=== PATIENT | male | born 1965 | race American Indian/Alaskan Native ===

== ENCOUNTER 2019-08-01 10:08 | Emergency (ER) | payer SELFPAY ==
--- NOTE | 2019-08-01 11:05 | Emergency Department Report ---
ED General Adult HPI - General Chief complaint: Dyspnea/Respdistress Stated complaint: DENILSON Time Seen by Provider: 08/01/19 10:35 Source: patient Mode of arrival: Stretcher Limitations: No Limitations - History of Present Illness Initial comments: Patient presents to the emergency department the chief complaint of increased shortness of breath since Friday. Patient states he was diagnosed with pneumonia on Friday at the [facility] and given a 5-day course of antibiotics. Patient states since that time he has had increased shortness of breath and more coughing. The patient also complains of orthopnea. Patient states he is prescribed Lasix as needed but has not had it since Friday. Patient denies any ayan chest pain. -: Gradual Severity scale (0 -10): 0 Consistency: constant Improves with: none Worsens with: other (Lying flat) Associated Symptoms: denies other symptoms Treatments Prior to Arrival: none - Related Data Home Medications Medication Instructions Recorded Confirmed Last Taken Aspirin 325 mg PO QDAY 07/30/13 07/30/13 Unknown buPROPion SR [Wellbutrin SR] 150 mg PO BID 07/30/13 07/30/13 Unknown metFORMIN [Glucophage] 1,000 mg PO BID 07/30/13 07/30/13 Unknown Previous Rx's Medication Instructions Recorded Last Taken Type Antacid [Alum-Mag Hydrox-Simeth 60 ml PO Q6H PRN 30 Days oral.liqd 08/07/13 Unknown Rx [id number]] Pantoprazole [Protonix TAB] 40 mg PO QDAY #30 tablet 08/07/13 Unknown Rx QUEtiapine [SEROquel] 50 mg PO QHS #30 tablet 08/07/13 Unknown Rx Simethicone [Gas Relief] 125 mg PO TID #90 capsule 08/07/13 Unknown Rx lisinopriL [Zestril TAB] 20 mg PO QDAY #30 tablet 08/07/13 Unknown Rx Ondansetron [Zofran Odt] 4 mg PO Q6H #20 tab.rapdis 02/22/14 Unknown Rx Oxycodone HCl/Acetaminophen 1 each PO Q6HR PRN #20 tablet 02/22/14 Unknown Rx [Percocet 10-325 mg] Albuterol INH(or & Nicu Only) 2 puff IH Q4HR PRN #1 inhalation 08/01/19 Unknown Rx [ProAir HFA Inhaler] Albuterol Sulfate [Albuterol 0.63% 0.63 mg IH Q4HR PRN #30 ml 08/01/19 Unknown Rx NEBS] guaiFENesin/CODEINE [Robitussin AC] 5 ml PO Q12HR PRN #180 oral.liqd 08/01/19 Unknown Rx levoFLOXacin [Levaquin] 750 mg PO QDAY #7 tablet 08/01/19 Unknown Rx predniSONE [Deltasone] 20 mg PO DAILY #15 tablet 08/01/19 Unknown Rx Allergies Allergy/AdvReac Type Severity Reaction Status Date / Time No Known Allergies Allergy Unverified 07/30/13 10:53 ED Review of Systems ROS: Stated complaint: DENILSON Other details as noted in HPI Constitutional: denies: chills, fever Eyes: denies: eye pain, eye discharge, vision change ENT: denies: ear pain, throat pain Respiratory: shortness of breath. denies: cough, wheezing Cardiovascular: denies: chest pain, palpitations Endocrine: no symptoms reported Gastrointestinal: denies: abdominal pain, nausea, diarrhea Genitourinary: denies: urgency, dysuria Musculoskeletal: denies: back pain, joint swelling, arthralgia Skin: denies: rash, lesions Neurological: denies: headache, weakness, paresthesias Psychiatric: denies: anxiety, depression Hematological/Lymphatic: denies: easy bleeding, easy bruising ED Past Medical Hx - Past Medical History Previous Medical History?: Yes Hx Hypertension: Yes Hx Congestive Heart Failure: No Hx Diabetes: Yes Hx Arthritis: Yes Hx Kidney Stones: Yes Hx Psychiatric Treatment: Yes (depression) Hx Asthma: No Hx COPD: No Additional medical history: Gallstones - Surgical History Past Surgical History?: Yes Additional Surgical History: tonsillectomy - Social History Smoking Status: Never Smoker Substance Use Type: None - Medications Home Medications: Home Medications Medication Instructions Recorded Confirmed Last Taken Type Aspirin 325 mg PO QDAY 07/30/13 07/30/13 Unknown History buPROPion SR [Wellbutrin SR] 150 mg PO BID 07/30/13 07/30/13 Unknown History metFORMIN [Glucophage] 1,000 mg PO BID 07/30/13 07/30/13 Unknown History Antacid [Alum-Mag Hydrox-Simeth 60 ml PO Q6H PRN 30 Days oral.liqd 08/07/13 Unknown Rx [id number]/[id number]] Pantoprazole [Protonix TAB] 40 mg PO QDAY #30 tablet 08/07/13 Unknown Rx QUEtiapine [SEROquel] 50 mg PO QHS #30 tablet 08/07/13 Unknown Rx Simethicone [Gas Relief] 125 mg PO TID #90 capsule 08/07/13 Unknown Rx lisinopriL [Zestril TAB] 20 mg PO QDAY #30 tablet 08/07/13 Unknown Rx Ondansetron [Zofran Odt] 4 mg PO Q6H #20 tab.rapdis 02/22/14 Unknown Rx Oxycodone HCl/Acetaminophen 1 each PO Q6HR PRN #20 tablet 02/22/14 Unknown Rx [Percocet 10-325 mg] Albuterol INH(or & Nicu Only) 2 puff IH Q4HR PRN #1 inhalation 08/01/19 Unknown Rx [ProAir HFA Inhaler] Albuterol Sulfate [Albuterol 0.63% 0.63 mg IH Q4HR PRN #30 ml 08/01/19 Unknown Rx NEBS] guaiFENesin/CODEINE [Robitussin AC] 5 ml PO Q12HR PRN #180 oral.liqd 08/01/19 Unknown Rx levoFLOXacin [Levaquin] 750 mg PO QDAY #7 tablet 08/01/19 Unknown Rx predniSONE [Deltasone] 20 mg PO DAILY #15 tablet 08/01/19 Unknown Rx ED Physical Exam - General Limitations: No Limitations General appearance: alert, in no apparent distress - Head Head exam: Present: atraumatic, normocephalic - Eye Eye exam: Present: normal appearance, PERRL, EOMI - ENT ENT exam: Present: mucous membranes moist - Neck Neck exam: Present: normal inspection - Respiratory Respiratory exam: Present: decreased breath sounds. Absent: respiratory distress - Cardiovascular Cardiovascular Exam: Present: regular rate, normal rhythm. Absent: systolic murmur, diastolic murmur, rubs, gallop - GI/Abdominal GI/Abdominal exam: Present: soft, normal bowel sounds. Absent: distended, tenderness - Rectal Rectal exam: Present: deferred - Extremities Exam Extremities exam: Present: normal inspection - Back Exam Back exam: Present: normal inspection - Neurological Exam Neurological exam: Present: alert, oriented X3, CN II-XII intact. Absent: motor sensory deficit - Psychiatric Psychiatric exam: Present: normal affect, normal mood - Skin Skin exam: Present: warm, dry, intact, normal color. Absent: rash ED Course Vital Signs 08/01/19 08/01/19 08/01/19 10:23 10:58 13:00 Temperature 98 F 98.7 F 98.4 F Pulse Rate 98 H 92 H 88 Respiratory 16 24 Rate Blood Pressure 133/75 Blood Pressure 132/82 144/84 [Left] O2 Sat by Pulse 100 99 Oximetry ED Medical Decision Making - Lab Data Result diagrams: 08/01/19 11:07 08/01/19 11:07 Lab Results 08/01/19 08/01/19 08/01/19 Range/Units 11:07 11:07 13:09 WBC 5.4 (4.5-11.0) K/mm3 RBC 3.68 (3.65-5.03) M/mm3 Hgb 9.8 L (11.8-15.2) gm/dl Hct 30.1 L (35.5-45.6) % MCV 82 L (84-94) fl MCH 27 L (28-32) pg MCHC 33 (32-34) % RDW 15.4 H (13.2-15.2) % Plt Count 218 (140-440) K/mm3 Lymph % (Auto) 10.2 L (13.4-35.0) % [place] % (Auto) 12.0 H (0.0-7.3) % Eos % (Auto) 1.4 (0.0-4.3) % Baso % (Auto) 1.1 (0.0-1.8) % Lymph # 0.6 L (1.2-5.4) K/mm3 [place] # 0.6 (0.0-0.8) K/mm3 Eos # 0.1 (0.0-0.4) K/mm3 Baso # 0.1 (0.0-0.1) K/mm3 Seg Neutrophils % 75.3 H (40.0-70.0) % Seg Neutrophils # 4.0 (1.8-7.7) K/mm3 Sodium 138 (137-145) mmol/L Potassium 3.8 (3.6-5.0) mmol/L Chloride 105.2 (98-107) mmol/L Carbon Dioxide 19 L (22-30) mmol/L Anion Gap 18 mmol/L BUN 10 (9-20) mg/dL Creatinine 0.7 L (0.8-1.5) mg/dL Estimated GFR > 60 ml/min BUN/Creatinine Ratio 14 % Glucose 161 H (75-100) mg/dL Calcium 7.7 L (8.4-10.2) mg/dL Total Bilirubin 0.40 (0.1-1.2) mg/dL AST 11 (5-40) units/L ALT 9 (7-56) units/L Alkaline Phosphatase 56 (35-129) units/L Troponin T < 0.010 (0.00-0.029) ng/mL NT-Pro-B Natriuret Pep 253.9 (0-900) pg/mL Total Protein 5.8 L (6.3-8.2) g/dL Albumin 3.1 L (3.9-5) g/dL Albumin/Globulin Ratio 1.1 % - EKG Data -: EKG Interpreted by Me EKG shows normal: sinus rhythm Rate: normal - Radiology Data Radiology results: report reviewed - Medical Decision Making Results discussed with patient Critical care attestation.: If time is entered above; I have spent that time in minutes in the direct care of this critically ill patient, excluding procedure time. ED Disposition Clinical Impression: Dyspnea Disposition: DC-01 TO HOME OR SELFCARE Is pt being admited?: No Does the pt Need Aspirin: No Condition: Stable Instructions: Dyspnea (ED) Additional Instructions: return if worse Referrals: YOBANI RABAGO MD [Primary Care Provider] - 3-5 Days [facility] [Outside] - 3-5 Days Time of Disposition: 15:13
--- NOTE | 2019-08-01 11:23 | XRay Report ---
CHEST 1 VIEW INDICATION: sob COMPARISON: 07/30/2013 FINDINGS: Support devices: None Heart: Upper limits of normal and unchanged Lungs/Pleura: No convincing evidence of acute pulmonary disease. Increased opacity in both mid and lo wer lungs, especially the left, is thought to be due to overlying soft tissue density. IMPRESSION: 1. No convincing evidence of acute disease. Signer Name: Kraig Alvares MD Signed: 08/01/2019 11:19 AM Workstation Name: Virtual Web
[2019-08-01 11:29] LABS: Basophils # (Auto) 0.1 K/mm3 (0.0-0.1); Basophils % (Auto) 1.1 % (0.0-1.8); Eosinophils # (Auto) 0.1 K/mm3 (0.0-0.4); Eosinophils % (Auto) 1.4 % (0.0-4.3); Hematocrit 30.1 % (35.5-45.6); Hemoglobin 9.8 gm/dl (11.8-15.2); Lymphocytes # (Auto) 0.6 K/mm3 (1.2-5.4); Lymphocytes % (Auto) 10.2 % (13.4-35.0); Mean Corpuscular HGB Conc 33 % (32-34); Mean Corpuscular Volume 82 fl (84-94); Monocytes # (Auto) 0.6 K/mm3 (0.0-0.8); Red Blood Count 3.68 M/mm3 (3.65-5.03); Red Cell Distribution Width 15.4 % (13.2-15.2)
[2019-08-01 11:30] LABS: Platelet Count 218 K/mm3 (140-440)
[2019-08-01 11:51] LABS: Alanine Aminotransferase 9 units/L (7-56); Albumin 3.1 g/dL (3.9-5); Calcium 7.7 mg/dL (8.4-10.2)
[2019-08-01] MEDS ORDERED: methylPREDNISolone Sod Succinate 125 MG/2 ML INJ IV ONE (12:27)
[2019-08-01] MEDS ORDERED: IPRATROPIUM/ALBUTEROL SULFATE 3 ML AMPUL.NEB IH ONE (12:27)
[2019-08-01 12:32] LABS: BUN/Creatinine Ratio 14; Blood Urea Nitrogen 10 mg/dL (9-20)
[2019-08-01 15:27] VITALS: BP 147/94
== END 2019-08-01 16:25 | disposition home or self-care (01) ==
LOC: ED 10:08
DX: R06.02 Shortness of breath (principal); R05 Cough; R06.01 Orthopnea; R06.00 Dyspnea, unspecified; I10 Essential (primary) hypertension; E11.9 Type 2 diabetes mellitus without complications; M19.91 Primary osteoarthritis, unspecified site; F32.9 Major depressive disorder, single episode, unspecified; K80.80 Other cholelithiasis without obstruction; Z90.89 Acquired absence of other organs; Z87.442 Personal history of urinary calculi; Z79.899 Other long term (current) drug therapy
CPT/HCPCS: 36415; 71045; 80053; 83880; 84484; 85025; 93005; 93010; 94640; 96374; 99284; J2930